=== PATIENT | male | born 1955 | race Caucasian/White ===

== ENCOUNTER 2021-05-16 15:55 | Emergency (ER) | payer MEDICARE, BC ==
[~2021-05-16] VITALS: Ht 165.1 cm; Wt 71.2 kg
--- NOTE | 2021-05-16 17:41 | NUR ---
Applied preformed wrist splint with elastic bandaged. PMS intact after splinting.
--- NOTE | 2021-05-16 17:47 | NUR ---
Patient discharged to home in stable condition. Written and verbal after care instructions given. Patient verbalizes understanding of instructions. Stressed follow up or return to ER for worsening s/s.
== END 2021-05-16 17:47 | disposition home or self-care (01) ==
LOC: ER 16:08
DX: S63.501A Unspecified sprain of right wrist, initial encounter (principal); W17.89XA Other fall from one level to another, initial encounter; Y92.89 Other specified places as the place of occurrence of the external cause
CPT/HCPCS: 73110; A4663